=== PATIENT | female | born 1940 | race Caucasian/White ===

== ENCOUNTER 2022-11-10 09:37 | Emergency (ER) | payer MEDICARE, SELFPAY ==
[2022-11-10 09:56] VITALS: BP 141/70; PULSE 73; RESP 18; TEMP 36.4; O2SAT 100
--- NOTE | 2022-11-10 09:58 | ED.URI ---
HPI - URI/Sore Throat General Chief Complaint: Upper Respiratory Infection Stated Complaint: Sore Throat Time Seen by Provider: 11/10/22 09:58 Source: patient, RN notes reviewed and old records reviewed Mode of arrival: ambulatory Limitations: no limitations History of Present Illness HPI Narrative: 82 year female presents to the [facility] with complaints of a sore throat for 6 days. Patient reports she has had headache which has resolved. Also reports that it felt like her tonsils were swollen but they also have resolved. Had taken Zyrtec 1 time. MD elicited complaint: sore throat Onset (ago): day(s) (6) Consistency: intermittent Related Data Home Medications Medication Instructions Recorded Confirmed atorvastatin 40 mg tablet mg 11/10/22 budesonide-formoterol HFA 160 inhalation 11/10/22 mcg-4.5 mcg/actuation aerosol inhaler (Symbicort) fluticasone propionate 50 intranasal 11/10/22 mcg/actuation nasal spray,suspension levothyroxine 25 mcg tablet mcg 11/10/22 Allergies Allergy/AdvReac Type Severity Reaction Status Date / Time No Known Drug Allergies Allergy Unknown Verified 11/10/22 10:00 Review of Systems Review of Systems: All systems reviewed & are unremarkable except as noted in HPI and below Constitutional: Constitutional: Reports as per HPI and Reports headache(s) Eyes: Eyes: Reports no additional eye complaints ENT: Reports as per HPI and Reports sore throat Cardiovascular: Cardiovascular: Reports no additional cardiovascular complaints, Denies chest pain and Denies dyspnea Respiratory: Respiratory: Reports no additional respiratory complaints, Denies chest congestion, Denies cough and Denies dyspnea Gastrointestinal: Gastrointestinal: Reports no additional gastrointestinal complaints, Denies abdominal pain, Denies nausea and Denies vomiting Musculoskeletal: Musculoskeletal: Reports no additional musculoskeletal complaints Integumentary/Breasts: Skin/Breast: Reports system reviewed and no additional complaints, except as docu Neurologic: Reports system reviewed and no additional complaints, except as documented Psychiatric: Psychiatric: Reports no additional psychiatric complaints Allergic/Immunologic: Allergic/Immunologic: Reports no additional allergic/immunologic complaints PMFSH Past Medical History Medical History Asthma High cholesterol Hypothyroid Comments At the time of my signature, I reviewed and agree with the nursing past medical, surgical, social, and family history. There is no relevant family history pertinent to the patient complaint. Exam Const: General: cooperative, healthy appearing, comfortable, no acute distress, well developed, alert and well nourished Nutritional Appearance: well nourished Orientation/consciousness: patient oriented x3 Limitations: no limitations HENMT: Head: normal to inspection Ears: hearing grossly normal bilaterally and external ears normal Face/Nose/Sinus: Normal external nose present, Normal nares present, Normal nasal mucous membranes and turbinates present and normal facial exam Face and sinus: normal facial exam Mouth: Yes Normal oral and palatal mucosa present, Yes lip normal and Yes moist mucous membranes Throat: posterior oropharynx normal and uvula midline Eyes: General: appearance normal, both eyes and all related structures Alignment and Position: alignment normal Periorbital: periorbital findings normal Conjunctivae: conjunctivae normal Pupils: Equal, round and reactive pupils present EOM: EOMs intact bilaterally Neck: Neck: normal visual inspection, full ROM, no lymphadenopathy and no meningeal signs Chest: Chest palpation & inspection: normal inspection of the chest Resp: Effort & Inspection: normal respiratory effort and able to speak in complete sentences Auscultation: clear to auscultation bilaterally, no crackles, no rales, no rhonchi and no whee
== END 2022-11-10 10:22 | disposition home or self-care (01) ==
PROVIDERS: Emergency Provider Nurse Practitioner; PCP Family Medicine Sports Medicine
DX: J02.9 Acute pharyngitis, unspecified (principal); J45.909 Unspecified asthma, uncomplicated; E78.00 Pure hypercholesterolemia, unspecified; E03.9 Hypothyroidism, unspecified
CPT/HCPCS: 87081; 87880; 99213; G0463

== ENCOUNTER 2023-10-04 09:50 | Emergency (ER) | payer MEDICARE, SELFPAY ==
[2023-10-04 10:02] VITALS: BP 141/69; PULSE 69; RESP 16; TEMP 36.2; O2SAT 99
--- NOTE | 2023-10-04 10:15 | ED.SKABFB ---
HPI - Skin/Abscess/Foreign Bdy General Chief complaint: Skin/Abscess/Foreign Body Stated complaint: rash right side foredead Source: patient Mode of arrival: ambulatory Limitations: no limitations History of Present Illness HPI narrative: 83 y/o female presented for c/o red scaly rash to right forehead. States it started as a small red area about 2 weeks ago, and then increased in size and blistered. Endorses itching. Denies pain or drainage. Has been applying [employer] brand psoriasis moisturizer. No other locations of rash/lesions. Denies lip, tongue, or throat swelling, shortness of breath or wheezing. Denies changes to soap, detergent, lotion, or any other exposures. No one else in the house or any contacts with similar symptoms. Related Data Home Medications Medication Instructions Recorded Confirmed atorvastatin 40 mg tablet 40 mg PO DAILY 11/10/22 10/04/23 budesonide-formoterol HFA 160 2 inh inhalation DAILY 11/10/22 10/04/23 mcg-4.5 mcg/actuation aerosol inhaler (Symbicort) fluticasone propionate 50 2 spray intranasal DAILY 11/10/22 10/04/23 mcg/actuation nasal spray,suspension levothyroxine 25 mcg tablet 25 mcg PO DAILY 11/10/22 10/04/23 Allergies Allergy/AdvReac Type Severity Reaction Status Date / Time No Known Drug Allergies Allergy Unknown Verified 10/04/23 09:59 Review of Systems Review of Systems: CONSTITUTIONAL: Denies body aches, fever, chills, or sweats. EYES: Denies visual changes, redness, or discharge. ENT: Denies rhinorrhea, congestion CARDIOVASCULAR: Denies chest pain, palpitations, or edema. RESPIRATORY: Denies cough or dyspnea. GASTROINTESTINAL: Denies abdominal pain, nausea, vomiting, or diarrhea. SKIN: reports rash to forehead MUSCULOSKELETAL: Denies back pain, joint pain, or myalgia. NEUROLOGIC: Denies headache, numbness, tingling, or weakness. [facility] Past Medical History Medical History Asthma High cholesterol Hypothyroid Comments At time of signature, I have reviewed and agree with nursing past medical, surgical, social and family history unless otherwise noted. Please see nursing chart for further information. There is no relevant family history pertinent to the presenting complaint Exam Narrative: GENERAL: Well-appearing HEAD: Normocephalic, atraumatic. EYES: conjunctivae clear, and EOMI. ENT: Mucous membranes moist. Oropharynx without edema, erythema or lesions. NECK: Supple. No lymphadenopathy CHEST: Clear to auscultation. HEART: Regular rate and rhythm. SKIN: Warm, dry. 2.5x3.5cm area of scaly flakey erythema right forehead. Nontender, no active drainage. Appears c/w healing zoster. NEURO: Alert and oriented x3. Course Course Emergency Course: Patient is aware of diagnosis, understands and agrees to treatment plan. Anticipatory guidance given. Patient agrees to follow-up as directed and is aware of reasons to seek care at the emergency department. Portions of this record may have been created with voice recognition software Level of Care: Express Care Visit Vital Signs Vital signs: Vital Signs Temperature 97.2 F L 10/04/23 10:02 Pulse Rate 69 10/04/23 10:02 Respiratory Rate 16 10/04/23 10:02 Blood Pressure 141/69 H 10/04/23 10:02 Pulse Oximetry 99 10/04/23 10:02 Oxygen Delivery Room Air 10/04/23 10:02 Temperature 97.2 F L 10/04/23 10:02 Pulse Rate 69 10/04/23 10:02 Respiratory Rate 16 10/04/23 10:02 Blood Pressure 141/69 H 10/04/23 10:02 Pulse Oximetry 99 10/04/23 10:02 Oxygen Delivery Room Air 10/04/23 10:02 Reviewed MDM - Skin/Abscess/Foreign Bdy MDM Narrative Medical decision making narrative: Discussed physical exam findings. Symptom onset 2 weeks, has progressed to blisters and now flakey and dried; likely zoster. Advised supportive measures and signs/symptoms to go to the ER. Pt is appropriate for outpt treatment a
== END 2023-10-04 10:18 | disposition home or self-care (01) ==
PROVIDERS: Emergency Provider Nurse Practitioner Family; PCP Family Medicine
DX: B02.9 Zoster without complications (principal); J45.909 Unspecified asthma, uncomplicated; Z79.899 Other long term (current) drug therapy
CPT/HCPCS: 99213; G0463

== ENCOUNTER 2023-11-22 12:43 | Emergency (ER) | payer MEDICARE, SELFPAY ==
[2023-11-22 13:08] VITALS: BP 129/86; PULSE 71; RESP 18; TEMP 36.1; O2SAT 100
--- NOTE | 2023-11-22 13:34 | ED.SKABFB ---
HPI - Skin/Abscess/Foreign Bdy General Chief complaint: Skin/Abscess/Foreign Body Stated complaint: Rash Time Seen by Provider: 11/22/23 13:10 Source: patient Mode of arrival: ambulatory Limitations: no limitations History of Present Illness HPI narrative: Gabrielle is an 83-year-old female patient presenting to the clinic today with complaints of a rash on her forehead and around her right eye. Reports that the rash itches and can be painful at times. States that now her eye is now feeling itchy as well. Was seen on 10/14/2023 and diagnosed with shingles on her face however at that time she had it for 1-2 weeks so mupirocin cream was ordered. 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 States then she saw the dentist and the dentist feels that she is needing to take an antiviral at this time as the rash has not yet cleared up. Related Data Home Medications Medication Instructions Recorded Confirmed atorvastatin 40 mg tablet 40 mg PO DAILY 11/10/22 11/22/23 budesonide-formoterol HFA 160 2 inh inhalation DAILY 11/10/22 11/22/23 mcg-4.5 mcg/actuation aerosol inhaler (Symbicort) fluticasone propionate 50 2 spray intranasal DAILY 11/10/22 11/22/23 mcg/actuation nasal spray,suspension levothyroxine 25 mcg tablet 25 mcg PO DAILY 11/10/22 11/22/23 Allergies Allergy/AdvReac Type Severity Reaction Status Date / Time No Known Drug Allergies Allergy Unknown Verified 11/22/23 12:52 Review of Systems Review of Systems: Pertinent positives per HPI. Patient denies any fever, chills, headache, visual changes, dizziness, cough, runny nose, sore throat, shortness of breath, chest pain, palpitations, nausea, vomiting, diarrhea, constipation, abdominal pain, or any urinary issues. PMFSH Past Medical History Medical History Asthma High cholesterol Hypothyroid Comments At the time of my signature, I reviewed and agree with the nursing past medical, surgical, social, and family history. There is no relevant family history pertinent to the patient complaint. Exam Narrative: General: Well-developed, well nourished, in no apparent distress Head: Normocephalic, atraumatic, red, raised, mild glistening, itchy, slight blistering rash to the right forehead, as well as on the right upper and lower eyelid. Eyes: Pupils equally round and reactive to light bilaterally, EOM intact, sclera and conjunctive clear, no discharge, lids normal, Wood's lamp exam was performed in the right eye and shows no dendritic lesions Ears: TMs intact and clear, ear canals clear, no drainage, grossly hearing normal. Nose: Nares patent, no discharge, no inflammation, no sinus tenderness. Mouth: Oropharynx without lesions or masses, good dentition, MMM. Neck: Supple, trachea midline, no enlargement of anterior or posterior cervical nodes, no thyroid masses or goiter palpable. Cardio: Regular rate and rhythm, s1 and s2 normal, no murmur appreciated. Resp: Clear to auscultation bilaterally anteriorly and posteriorly, no rhonchi, rales, wheezing or rubs Course Course Emergency Course: Portions of this record may have been created with voice recognition software. Level of Care: Express Care Visit Vital Signs Vital signs: Vital Signs Temperature 36.1 C L 11/22/23 13:08 Pulse Rate 71 11/22/23 13:08 Respiratory Rate 18 11/22/23 13:08 Blood Pressure 129/86 11/22/23 13:08 Pulse Oximetry 100 11/22/23 13:08 Oxygen Delivery Room Air 11/22/23 13:08 Temperature 36.1 C L 11/22/23 13:08 Pulse Rate 71 11/22/23 13:08 Respiratory Rate 18 11/22/23 13:08 Blood Pressure 129/86 11/22/23 13:08 Pulse Oximetry 100 11/22/23 13:08 Oxygen Delivery Room Air 11/22/23 13:08 Vital signs reviewed Procedures Other Procedure Procedure 1: Other Procedure: Topical anesthet
== END 2023-11-22 13:58 | disposition home or self-care (01) ==
PROVIDERS: Emergency Provider Nurse Practitioner Family
DX: L30.9 Dermatitis, unspecified (principal); J45.909 Unspecified asthma, uncomplicated; E78.00 Pure hypercholesterolemia, unspecified; E03.9 Hypothyroidism, unspecified
CPT/HCPCS: 99213; A9270; G0463

== ENCOUNTER 2025-05-23 17:27 | Emergency (ER) | payer MEDICARE, SELFPAY ==
--- NOTE | ~2025-05-23 | XR_ITS ---
EXAMINATION: XR knee LT min 4V DATE: 05/23/2025 17:54 INDICATION: Left knee pain and swelling post twisting injury TECHNIQUE: Weight bearing anteroposterior and Grady, sunrise, and flexed lateral views of the lef t knee were obtained COMPARISON: None. FINDINGS: Subtle discontinuity along the cortex at the junction of the medial tibial plateau and the intercondy lar eminence consistent with minimally displaced fracture. There is an additional mildly depressed fr acture involving the posterolateral aspect of the lateral tibial plateau. There is secondary mild wid ening of the joint space at the lateral compartment. Joint space at the medial and patellofemoral com partments are normal. 4.8 x 3.0 x 5.6 cm sclerotic lesion with somewhat serpiginous peripheral sclero tic margins with location and appearance most consistent with osteonecrosis/bone infarct. Small enthe sophytes at the patellar insertion of the distal quadriceps tendon. Small to moderate-sized likely la yering lipohemarthrosis at the suprapatellar pouch of the left knee. Soft tissues are unremarkable. IMPRESSION: 1. Proximal left tibial fracture including minimally displaced fracture of the intercondylar eminence and a mildly depressed intra-articular fracture at the posterolateral aspect of the lateral tibial p lateau 2. Small to moderate-sized likely left knee lipohemarthrosis. 3. Incidental large sclerotic lesion consistent with osteonecrosis/bone infarct at the distal metaphy sis of the left femur. Reviewed, dictated and finalized at location A. IMPRESSION: 1. Proximal left tibial fracture including minimally displaced fracture of the intercondylar eminence and a mildly depressed intra-articular fracture at the p osterolateral aspect of the lateral tibial plateau 2. Small to moderate-sized likely left knee lipohemarthrosis. 3. 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
[2025-05-23 17:42] VITALS: BP 148/83; PULSE 74; RESP 16; TEMP 37.1; O2SAT 99
--- NOTE | 2025-05-23 18:38 | ED_ITS ---
HPI - Extremity Injury (Lower) General Chief Complaint: Extremity Injury, Lower Stated Complaint: L knee pain Time Seen by Provider: 05/23/25 17:31 Source: patient Mode of arrival: ambulatory Limitations: no limitations History of Present Illness HPI Narrative: Patient is an 84-year-old female who presents with left knee pain after twisting it getting out of the pool. Patient states she fell back into the pool after going up the 3 steps. Patient states it is only painful when bearing weight. Patient is able to bend and touch with no pain. Denies any numbness, tingling or weakness to the rest the extremity. Related Data Home Medications ?Medication ?Instructions ?Recorded ?Confirmed ?Last Taken ?Type atorvastatin 40 mg tablet 40 mg PO DAILY 11/10/22 11/22/23 Unknown History budesonide-formoterol HFA 160 2 inh inhalation DAILY 11/10/22 11/22/23 Unknown History mcg-4.5 mcg/actuation aerosol inhaler (Symbicort) fluticasone propionate 50 2 spray intranasal DAILY 11/10/22 11/22/23 Unknown History mcg/actuation nasal spray,suspension levothyroxine 25 mcg tablet 25 mcg PO DAILY 11/10/22 11/22/23 Unknown History Allergies Allergy/AdvReac Type Severity Reaction Status Date / Time No Known Drug Allergies Allergy Unknown Verified 05/23/25 17:41 Review of Systems Review of Systems: All systems reviewed & are unremarkable except as noted in HPI and below Constitutional: Constitutional: Denies body ache(s), Denies chills, Denies fatigue, Denies fever(s), Denies headache(s), Denies malaise and Denies weakness Eyes: Eyes: Denies blurry vision, Denies irritation and Denies loss of vision ENT: Denies otalgia, Denies headache(s), Denies nasal discharge, Denies sinus pain and Denies sore throat Cardiovascular: Cardiovascular: Denies chest pain, Denies irregular heart rhythm and Denies dyspnea Respiratory: Respiratory: Denies dyspnea Gastrointestinal: Gastrointestinal: Denies abdominal pain, Denies melena, Denies hematochezia, Denies diarrhea, Denies nausea and Denies vomiting Musculoskeletal: Musculoskeletal: Denies back pain, Denies myalgias and Reports arthralgias Integumentary/Breasts: Skin/Breast: Denies pruritus and Denies rash Neurologic: Denies headache(s), Denies loss of vision and Denies weakness Psychiatric: Psychiatric: Reports no additional psychiatric complaints Endocrine: Endocrine: Denies fatigue PMFSH Past Medical History Medical History Hypothyroid High cholesterol Asthma Comments At time of signature, agree with nursing past medical, surgical, social and family history. There is no relevant family history pertinent to the presenting complaint. Exam Const: General: cooperative, healthy appearing, comfortable, no acute distress and well nourished Nutritional Appearance: well nourished Or ientation/consciousness: patient oriented x3 Limitations: no limitations HENMT: Head: normal to inspection, normocephalic and atraumatic Ears: hearing grossly normal bilaterally and external ears normal Face/Nose/Sinus: Normal external nose present, normal facial exam and face symmetric Face and sinus: normal facial exam and face symmetric Mouth: Yes lip normal Eyes: General: appearance normal, both eyes and all related structures Alignment and Position: alignment normal and position normal Periorbital: periorbital findings normal Eyelids: eyelids normal Pupils: Equal, round and reactive pupils present EOM: EOMs intact bilaterally Neck: Neck: normal visual inspection, full ROM and supple Chest: Chest palpation & inspection: normal inspection of the chest Resp: Effort & Inspection: normal respiratory effort and able to speak in complete sentences Auscultation: clear to auscultation bilaterally Cardio: Rate: regular rate Rhythm: regular rhythm Heart sounds: S1 normal heart sound present and S2 normal heart sound present GI: Inspection: normal to inspection Skin: General skin exam: normal color and no rashes or lesions noted Neuro: General: patient oriented x3 and moves all extremities Cranial nerves: Yes Equal, round and reactive pupils present Speech: normal speech Gait exam (Neuro): Normal gait present Extrem: General: normal to inspection, full ROM and no edema Left lower extremity: hip/thigh Details: normal to inspection and normal ROM, knee Details: normal ROM and knee ligament exam abnormal Details: valgus stress test Details: pain noted and varus stress test Details: pain noted; no tenderness, no ecchymosis and no deformity, lower leg Details: normal to inspection; no tenderness and no deformity, ankle Details: normal to inspection and normal ROM; no tenderness and achilles tendon exam normal and foot Details: normal capillary refill, toes with normal ROM and vascular exam Details: dorsalis pedis pulse present and normal capillary refill; no tenderness and no ecchymosis Psych: Appearance: grossly normal and well kempt Mental Status: mental status grossly normal Speech and movement: Normal speech and movement present Affect: normal affect Attitude: cooperative Thought process: Normal thought process present Course Course Emergency Course: Patient is aware of diagnosis, understands and agrees to treatment plan. Anticipatory guidance given. Patient agrees to follow-up as directed and is aware of reasons to seek care at the emergency department. Portions of this record may have been created with voice recognition software Level of Care: Express Care Visit Vital Signs Vital signs: Vital Signs Temperature 37.1 C 05/23/25 17:42 Pulse Rate 74 05/23/25 17:42 Respiratory Rate 16 05/23/25 17:42 Blood Pressure 148/83 H 05/23/25 17:42 Pulse Oximetry 99 05/23/25 17:42 Temperature 37.1 C 05/23/25 17:42 Pulse Rate 74 05/23/25 17:42 Respiratory Rate 16 05/23/25 17:42 Blood Pressure 148/83 H 05/23/25 17:42 Pulse Oximetry 99 05/23/25 17:42 Reviewed MDM - Extremity Injury (Lower) MDM Narrative Medical decision making narrative: Patient is able to bear weight and ambulate with pain. No surface of trauma or obvious effusion. No overlying erythema or warmth. The L knee is without obvious asymmetry or deformity when comparing to the R. Fully extended knee with no pain. internal and external rotation with mild pain. Nontender to palpate of the patella, no effusion. Nontender over the infrapatellar tendon.. Nontender over the medial or lateral joint line, or medial or lateral tibial plateaus. Nontender over the proximal fibular head. Nontender, fullness, or mass of the popliteal fossa. NO quadriceps tenderness. No laxity of the ACL, PCL, MCL, LCL. Negative Leona sign. Distal motor and neurovascular status intact. Based on exam and radiology findings patient we placed in knee immobilizer and follow-up with ortho as she has a tibial plateau fracture Differential Diagnosis Differential diagnosis: Likely acute internal derangement of knee and other (Tibial plateau fracture) Medical Records Attestation: I reviewed the patient's medical records. Imaging Data Radiologist's impression: EXAMINATION: XR knee LT min 4V DATE: 05/23/2025 17:54 INDICATION: Left knee pain and swelling post twisting injury TECHNIQUE: Weight bearing anteroposterior and Grady, sunrise, and flexed lateral views of the left knee were obtained COMPARISON: None. FINDINGS: Subtle discontinuity along the cortex at the junction of the medial tibial plateau and the intercondylar eminence consistent with minimally displaced fracture. There is an additional mildly depressed fracture involving the posterolateral aspect of the lateral tibial plateau. There is secondary mild widening of the joint space at the lateral compartment. Joint space at the medial and patellofemoral compartments are normal. 4.8 x 3.0 x 5.6 cm sclerotic lesion with somewhat serpiginous peripheral sclerotic margins with location and appearance most consistent with osteonecrosis/bone infarct. Small enthesophytes at the patellar insertion of the distal quadriceps tendon. Small to moderate- sized likely layering lipohemarthrosis at the suprapatellar pouch of the left knee. Soft tissues are unremarkable. IMPRESSION: 1. Proximal left tibial fracture including minimally displaced fracture of the intercondylar eminence and a mildly depressed intra-articular fracture at the posterolateral aspect of the lateral tibial plateau 2. Small to moderate-sized likely left knee lipohemarthrosis. 3. 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 Discharge Plan Discharge Clinical Impression: Osteonecrosis, Lipohemarthrosis Closed fracture of tibial plateau Qualifiers: Encounter type: initial encounter Laterality: left Qualified Code(s): S82.142A - Displaced bicondylar fracture of left tibia, initial encounter for closed fracture Patient Disposition: Home Condition: Stable Instructions: Leg Fracture (ED) Additional Instructions: Please rest, ice and elevate the affected extremity. For pain, you may take: Tylenol 650-1000mg by mouth every 4-6 hours. Do not exceed 4000mg in 24 hours. Advil (Ibuprofen) 600 mg by mouth every 6 hours. Do not exceed 2400mg in 24 hours 8 AM: Tylenol 11 AM: Ibuprofen 2 PM: Tylenol 5 PM: Ibuprofen 8 PM: Tylenol 11 PM: Ibuprofen 2 AM: Tylenol 5 AM: Ibuprofen Follow up with Orthopedic Surgery in 1-2 days for further evaluation - please call for an appointment. Keep splint/cast clean, dry and on. Please use garbage bag while showering to keep splint/cast dry. Use crutches. Please go to ER i mmediately for increased pain, tingling/numbness, swelling, redness, and fever Your blood pressure was elevated above 120/80 today at Urgent Care. This puts you above the threshold for follow up visit with a primary care provider. High blood pressure does not usually cause any symptoms, however it may lead to kidney failure, stroke, heart disease just to name a few if untreated . Many people are anxious when seeing a provider or nurse. As a result, you are not diagnosed with hypertension at this time unless your blood pressure is persistently high at two office visits at least one week apart. Some things that can help lower blood pressure are lifestyle modifications, such as light exercise, decreased salt in diet, and weight loss. It is important to follow up with a PCP about this within 1 week. Patient Language: French Prescriptions: No Action valacyclovir [Valtrex] 1 gram tablet 1,000 mg PO Q8H 7 Days Qty: 21 0RF triamcinolone acetonide 0.1 % cream 1 applic topical BID 7 Days Qty: 30 0RF atorvastatin 40 mg tablet 40 mg PO DAILY levothyroxine 25 mcg tablet 25 mcg PO DAILY fluticasone propionate 50 mcg/actuation spray,suspension 2 spray INTRANASAL DAILY budesonide-formoterol [Symbicort] 160-4.5 mcg/actuation HFA aerosol inhaler 2 inh INHALATION DAILY Follow-up/Referrals: Naomi,Didier Santillan MD [Primary Care Provider] - 3 Days Kishor Tapia MD [Physician] - 2 Days (IMPRESSION: 1. Proximal left tibial fracture including minimally displaced fracture of the intercondylar eminence and a mildly depressed intra-articular fracture at the posterolateral aspect of the lateral tibial plateau 2. Small to moderate-sized likely left knee lipohemarthrosis. 3. Incidental large sclerotic lesion consistent with osteonecrosis/bone infarct at the distal metaphysis of the left femur.) Time of Disposition: 18:54
== END 2025-05-23 19:20 | disposition home or self-care (01) ==
PROVIDERS: Emergency Provider Nurse Practitioner Family; PCP Family Medicine
DX: M87.9 Osteonecrosis, unspecified (principal); M25.062 Hemarthrosis, left knee; S82.142A Displaced bicondylar fracture of left tibia, initial encounter for closed fracture; X50.0XXA Overexertion from strenuous movement or load, initial encounter; E03.9 Hypothyroidism, unspecified; E78.00 Pure hypercholesterolemia, unspecified; J45.909 Unspecified asthma, uncomplicated
CPT/HCPCS: 73564; 99214; G0463; L1830